=== PATIENT | male | born 1990 | race Caucasian/White ===

== ENCOUNTER 2019-02-13 19:30 | Emergency (ER) | payer BC ==
--- NOTE | 2019-02-13 20:53 | ED ---
Lower Extremity - HPI Summary HPI Summary: Pt is a 28 y/o M presenting to the ED with a chief complaint of throat pain initially onset a couple of months ago. He states that sometimes when he sneezes he experiences pain rated at 4-5/10 in the front of his throat, but tonight it was much worse. It began around 1800 and is rated at 8-9/10. These episodes come on about once a week and it lasts about 1 hour. He denies vomiting or hemoptysis. He is able to swallow with much pain. - History of Current Complaint Chief Complaint: EDThroatPain Stated Complaint: PAIN IN THROAT PER PT Time Seen by Provider: 02/13/19 20:11 Hx Obtained From: Patient Mechanism Of Injury: Unknown Onset of Pain: Days Onset/Duration: Still Present Severity Initially: Moderate Severity Currently: Severe Pain Intensity: 8 Pain Scale Used: 0-10 Numeric Timing: Intermittent, Lasting Hours - Allergies/Home Medications Allergies/Adverse Reactions: Allergies Allergy/AdvReac Type Severity Reaction Status Date / Time No Known Allergies Allergy Verified 02/13/19 20:03 PMH/Surg Hx/FS Hx/Imm Hx Musculoskeletal History: Denies: Hx Rheumatoid Arthritis, Hx Osteoporosis Neurological History: Reports: Hx Headaches - PATIENT STATES HE HAS HEADACHES SOMETIMES Infectious Disease History: No Infectious Disease History: Denies: Traveled Outside the [place] in Last 30 Days - Social History Alcohol Use: Occasionally Substance Use Type: Reports: None Smoking Status (MU): Never Smoked Tobacco Physical Exam Vital Signs On Initial Exam: Initial Vitals Temp Pulse Resp BP Pulse Ox 97.7 F 92 16 147/89 98 02/13/19 19:30 02/13/19 19:30 02/13/19 19:30 02/13/19 19:30 02/13/19 19:30 Diagnostics - Vital Signs Vital Signs Temp Pulse Resp BP Pulse Ox 02/13/19 19:30 97.7 F 92 16 147/89 98 - Laboratory Lab Statement: Any lab studies that have been ordered have been reviewed, and results considered in the medical decision making process. Discharge ED - Discharge Plan Referrals: No Primary Care Phys,NOPCP [Primary Care Provider] - - Attestation Statements Document Initiated by Scribe: Yes
--- NOTE | 2019-02-13 20:55 | ED ---
Throat Pain/Nasal Congestion - HPI Summary HPI Summary: Pt is a 28 y/o M presenting to the ED with a chief complaint of throat pain initially onset a couple of months ago. He states that sometimes when he sneezes he experiences pain rated at 4-5/10 in the front of his throat, but tonight it was much worse. It began around 1800 and is rated at 8-9/10. These episodes come on about once a week and it lasts about 1 hour. He denies vomiting or hemoptysis. He is able to swallow with much pain. - History of Current Complaint Chief Complaint: EDThroatPain Time Seen by Provider: 02/13/19 20:11 Hx Obtained From: Patient Onset/Duration: Sudden Onset, Lasting Hours, Still Present Severity: Severe Associated Signs And Symptoms: Positive: Negative Cough: None - Allergies/Home Medications Allergies/Adverse Reactions: Allergies Allergy/AdvReac Type Severity Reaction Status Date / Time No Known Allergies Allergy Verified 02/13/19 20:03 PMH/Surg Hx/FS Hx/Imm Hx Previously Healthy: Yes Endocrine/Hematology History: Denies: Hx Diabetes Cardiovascular History: Denies: Hx Hypertension Musculoskeletal History: Denies: Hx Rheumatoid Arthritis, Hx Osteoporosis Neurological History: Reports: Hx Headaches - PATIENT STATES HE HAS HEADACHES SOMETIMES Infectious Disease History: No Infectious Disease History: Denies: Traveled Outside the [place] in Last 30 Days - Family History Known Family History: Negative: Diabetes - Social History Alcohol Use: Occasionally Hx Substance Use: No Substance Use Type: Reports: None Hx Tobacco Use: No Smoking Status (MU): Never Smoked Tobacco Review of Systems Positive: Sore Throat. Negative: Other - hemoptysis Negative: Vomiting All Other Systems Reviewed And Are Negative: Yes Physical Exam - Summary Physical Exam Summary: Constitutional: Well-developed, Well-nourished, Alert. (-) Distressed Skin: Warm, Dry HENT: Normocephalic; Atraumatic Eyes: Conjunctiva normal Neck: Musculoskeletal ROM normal neck. (-) JVD, (-) Stridor, (-) Tracheal deviation. No crepitus or tenderness. Cardio: Rhythm regular, rate normal, Heart sounds normal; Intact distal pulses; The pedal pulses are 2+ and symmetric. Radial pulses are 2+ and symmetric. (-) Murmur Pulmonary/Chest wall: Effort normal. (-) Respiratory distress, (-) Wheezes, (-) Rales Abd: Soft, (-) tenderness, (-) Distension, (-) Guarding, (-) Rebound Musculoskeletal: (-) Edema Lymph: (-) Cervical adenopathy Neuro: Alert, Oriented x3 Psych: Mood and affect Normal Triage Information Reviewed: Yes Vital Signs On Initial Exam: Initial Vitals Temp Pulse Resp BP Pulse Ox 97.7 F 92 16 147/89 98 02/13/19 19:30 02/13/19 19:30 02/13/19 19:30 02/13/19 19:30 02/13/19 19:30 Vital Signs Reviewed: Yes Procedures - Sedation Patient Received Moderate/Deep Sedation with Procedure: No Diagnostics - Vital Signs Vital Signs Temp Pulse Resp BP Pulse Ox 02/13/19 19:30 97.7 F 92 16 147/89 98 - Laboratory Lab Statement: Any lab studies that have been ordered have been reviewed, and results considered in the medical decision making process. - Radiology CXR Radiology Interpretation Completed By: ED Physician Summary of Radiographic Findings: No acute process. Pending official radiology report. Neck XR Radiology Interpretation Completed By: ED Physician Summary of Radiographic Findings: No acute process. Pending official radiology report. EENT Course/Dx - Course Course Of Treatment: Patient is here with throat pain after sneezing. Patient' s had similar symptoms on a weekly basis over the past couple of months. Upon my exam here, patient had no evidence of barotrauma. However, given patient's symptoms a soft tissue x-ray of his neck and a chest x-ray were performed which showed no evidence of mediastinal or free air. Patient was given a primary care doctor as he does not have one. Patient had no emergent condition that needed further evaluation. - Diagnoses Provider Diagnoses: Neck pain Discharge ED - Sign-Out/Discharge Documenting (check all that apply): Patient Departure - Discharge Plan Condition: Stable Disposition: HOME Patient Education Materials: Neck Pain (ED) [facility]errals: [facility] [Outside] Additional Instructions: Follow up with [facility] in 1-3 days. Come back to the emergency department with any new or worsening symptoms. - Billing Disposition and Condition Condition: STABLE Disposition: Home - Attestation Statements Document Initiated by Scribe: Yes Documenting Scribe: Viky Segura Provider For Whom Scribe is Documenting (Include Credential): Samuel Porter MD. Scribe Attestation: Viky Banuelos, scribed for Samuel Porter MD. on 02/13/19 at 2141. Scribe Documentation Reviewed: Yes Provider Attestation: The documentation as recorded by the scribe, Viky Segura accurately reflects the service I personally performed and the decisions made by me, Samuel Porter MD. Status of Scribe Document: Viewed
[2019-02-13 21:04] VITALS: BP 140/80
== END 2019-02-13 21:04 | disposition home or self-care (01) ==
LOC: ED 19:30
DX: M54.2 Cervicalgia (principal)
CPT/HCPCS: 70360; 71046; 99281

== ENCOUNTER 2019-04-29 11:22 | Emergency (ER) | payer BC ==
--- NOTE | 2019-04-29 12:33 | ED ---
GI/ HPI - HPI Summary HPI Summary: The pt is a 28 yr old male [facility] c/o of right testitcle pain and lump beginning 1 day [employer]. He states that he is sexually active and uses protection when having sex. He notes that the lump is only painful to touch and he rates his current pain severity a 3/10. No aggravating or alleviating factors noted. He also denies any penile discharge, dysuria, or lesions. - History of Current Complaint Chief Complaint: EDUrogenitalProblems Time Seen by Provider: 04/29/19 12:15 Stated Complaint: RIGHT GROIN PAIN Hx Obtained From: Patient Onset/Duration: Started Days Ago Timing: Constant Severity: Mild Current Severity: Mild Pain Intensity: 3 Additional Locations for Males: Testicles - right Associated Signs and Symptoms: Negative: Dysuria Additional Signs & Symptoms: Negative: Penile Discharge, Lesions Aggravating Factor(s): Nothing Alleviating Factor(s): Nothing - Allergy/Home Medications Allergies/Adverse Reactions: Allergies Allergy/AdvReac Type Severity Reaction Status Date / Time No Known Allergies Allergy Verified 04/29/19 11:34 PMH/Surg Hx/FS Hx/Imm Hx Endocrine/Hematology History: Denies: Hx Diabetes Cardiovascular History: Denies: Hx Hypertension Musculoskeletal History: Denies: Hx Rheumatoid Arthritis, Hx Osteoporosis Neurological History: Reports: Hx Headaches - PATIENT STATES HE HAS HEADACHES SOMETIMES - Surgical History Surgical History: None Surgery Procedure, Year, and Place: none Infectious Disease History: No Infectious Disease History: Denies: Traveled Outside the [place] in Last 30 Days - Family History Known Family History: Negative: Diabetes - Social History Alcohol Use: Occasionally Hx Substance Use: No Substance Use Type: Reports: None Hx Tobacco Use: No Smoking Status (MU): Never Smoked Tobacco Review of Systems Negative: Fever Genitourinary: Other - neg - lesions, pos - right testicle pain Negative: dysuria, discharge All Other Systems Reviewed And Are Negative: Yes Physical Exam - Summary Physical Exam Summary: Constitutional: Well-developed, Well-nourished, Alert. (-) Distressed Skin: Warm, Dry HENT: Normocephalic; Atraumatic Eyes: Conjunctiva normal Neck: Musculoskeletal ROM normal neck. (-) JVD, (-) Stridor, (-) Tracheal deviation Cardio: Rhythm regular, rate normal, Heart sounds normal; Intact distal pulses; Radial pulses are 2+ and symmetric. (-) Murmur Pulmonary/Chest wall: Effort normal. (-) Respiratory distress, (-) Wheezes, (-) Rales Abd: Soft, (-) tenderness, (-) Distension, (-) Guarding, (-) Rebound Musculoskeletal: (-) Edema Lymph: (-) Cervical adenopathy Neuro: Alert, Oriented x3 : Scrotum with small area of erythema raised and tender on right testicle, no testicular masses, no testicular tenderness, no penile discharge no inguinal adenopathy Psych: Mood and affect Normal Triage Information Reviewed: Yes Vital Signs On Initial Exam: Initial Vitals Temp Pulse Resp BP Pulse Ox 98.5 F 77 14 137/83 98 04/29/19 11:31 04/29/19 11:31 04/29/19 11:31 04/29/19 11:31 04/29/19 11:31 Vital Signs Reviewed: Yes Procedures - Sedation Patient Received Moderate/Deep Sedation with Procedure: No Diagnostics - Vital Signs Vital Signs Temp Pulse Resp BP Pulse Ox 04/29/19 11:31 98.5 F 77 14 137/83 98 - Laboratory Lab Statement: Any lab studies that have been ordered have been reviewed, and results considered in the medical decision making process. GIGU Course/Dx - Course Course Of Treatment: Patient is here with folliculitis on his scrotum. Patient has no evidence of cellulitis. Patient has no testicular mass or tenderness. Patient is a 59 risk factors. Patient bizarreness alonzo lattice roughly 1 month ago and responded well to initial treatment. Patient does shave his scrotum and likely this is inciting factor. Patient is discharged on mupirocin ointment. - Diagnoses Provider Diagnoses: Folliculitis Discharge ED - Sign-Out/Discharge Documenting (check all that apply): Patient Departure - discharge - Discharge Plan Condition: Stable Disposition: HOME Prescriptions: Mupirocin 2% OINT* [Bactroban 2 % Oint*] 1 applic TOPICAL TID 10 Days #1 tube Patient Education Materials: Folliculitis (ED) Referrals: [facility] [Outside] - 3 Days Additional Instructions: Please use antibiotic cream as prescribed. Please return to the ED for any new or worsening symptoms. - Billing Disposition and Condition Condition: STABLE Disposition: Home - Attestation Statements Document Initiated by Vaibhav: Yes Documenting Scribe: Harlan Parikh Provider For Whom Scribe is Documenting (Include Credential): Samuel Porter MD Scribe Attestation: I, Harlan Parikh, scribed for Samuel Porter MD on 04/29/19 at 1422. Scribe Documentation Reviewed: Yes Provider Attestation: The documentation as recorded by the scribe, Harlan Parikh accurately reflects the service I personally performed and the decisions made by me, Samuel Porter MD Status of Scribe Document: Viewed
[2019-04-29 12:50] VITALS: BP 141/93
== END 2019-04-29 12:46 | disposition home or self-care (01) ==
LOC: ED 11:22
DX: L73.9 Follicular disorder, unspecified (principal); N50.811 Right testicular pain
CPT/HCPCS: 99282